=== PATIENT | male | born 1985 | race Caucasian/White ===

== ENCOUNTER 2017-01-22 05:50 | Inpatient (IN) ==
--- NOTE | 2017-01-13 14:05 | EKG Report ---
Stationary ECG Study [facility] Test Date: 01/13/2017 2:05:32 PM Pat Name: KARISSA NORMAN Department: Room: Gender: M Commercial Insulator: LILI [birth year]17 : 1985 Requested by: John Ferrari Order Number: [id number] Reading MD: CAITLIN RUSSELL Intervals [place] Rate: 81 P: 48 ID: [id number] QRS: 78 QRSD: 96 T: 53 QT: 348 QTc: 385 Interpretive Statements SINUS RHYTHM Electronically Signed On 01-14-17 12:17:48 CDT by CAITLIN RUSESLL [email or web address]
--- NOTE | 2017-01-13 14:16 | XRay Report ---
XR chest 2V Indication: Respiratory preoperative evaluation Comparison: None available Findings: The heart and mediastinum are normal in size and configuration. The pulmonary vascularity is normal in caliber. No lung infiltrates, effusions, pneumothorax or other abnormality is demonstrated. Impression: No acute cardiopulmonary disease. PROCEDURE INTERPRETED AT [facility] DEPARTMENT OF RADIOLOGY Final Report Signed by: Dr. Jos Ch
[2017-01-13 14:29] LABS: Basophils # 0.1 10*3/uL (0.0-0.2); Basophils % 0.7 % (0.0-0.8); Eosinophils # 0.1 10*3/uL (0.0-0.87); Eosinophils % 0.9 % (0.00-10.9); Hematocrit 43.9 VOL% (42.0-52.0); Hemoglobin 15.6 GM/DL (14.0-18.0); Immature Granulocytes % 0.4 %; Immature Granulocytes Absolute 0.03 #; Lymphocytes # 2.1 10*3/uL (1.4-4.0); Lymphocytes % 30.4 % (21.2-54.2); Mean Corpuscular HGB Conc 35.5 GM/DL (32-36); Mean Corpuscular Hemoglobin 32 PG (27-34); Mean Corpuscular Volume 89.2 FL (87-102); Mean Platelet Volume 9.3 FL (9.6-12.0); Monocytes # 0.6 10*3/uL (0.11-0.8); Monocytes % 8.1 % (1.7-12.7); Neutrophils # 4.1 10*3/uL (1.4-7.4); Neutrophils % 59.5 % (38.7-73.9); Platelet Count 212 T/CUMM (130-400); Red Blood Count 4.92 MC/CUMM (3.8-5.5); Red Cell Distribution Width 12.3 % (9.3-17.3)
[2017-01-13 15:05] LABS: Albumin 4.2 G/DL (3.4-5.0); Bilirubin,Total 1.4 MG/DL (0.2-1.0); Calcium 9.1 MG/DL (8.5-10.1); Osmolality,Calculated 274.7 MOS/KG (273-304); Potassium 3.8 MMOL/L (3.5-5.1); Total Protein 7.3 G/DL (6.4-8.3)
[2017-01-22] MEDS ORDERED: ALVIMOPAN 12 MG CAPSULE PO ONE (06:00)
[2017-01-22] MEDS ORDERED: cefOXitin 1,000 MG in SODIUM CHLORIDE 0.9% 100 ML IV ONE (06:00)
[2017-01-22] MEDS ORDERED: SODIUM CHLORIDE 0.9% 100 ML IV ONE (06:03)
[2017-01-22] MEDS ORDERED: ALVIMOPAN 12 MG CAPSULE ONE (06:03)
[2017-01-22] MEDS ORDERED: LIDOCAINE 1%/EPI INJ 20 ML VIAL ONE (06:23)
[2017-01-22] MEDS ORDERED: BUPIVACAINE 0.25% 50 ML VIAL ONE (06:24)
[2017-01-22] MEDS: LACTATED RINGERS 1,000 ML IV SCH ×4 (06:27→11:16)
[2017-01-22] MEDS ORDERED: TISSUE ADHESIVE 1 EACH APPLICATOR TOP ONE (11:56)
[2017-01-22] MEDS ORDERED: ONDANSETRON 4 MG/2 ML VIAL ONE ×2 (12:21→12:36)
[2017-01-22] MEDS ORDERED: MIDAZOLAM 2 MG/2 ML VIAL ONE (12:21)
[2017-01-22] MEDS ORDERED: KETAMINE 500 MG/10 ML VIAL ONE (12:21)
[2017-01-22] MEDS ORDERED: SEVOFLURANE 1 UNIT/15 MINUTE INH ONE (12:22)
[2017-01-22] MEDS ORDERED: ACETAMINOPHEN 1,000 MG/100 ML VIAL IV ONE (12:22)
--- NOTE | 2017-01-22 12:29 | Operative Note ---
Date of procedure: 01/22/17 Pre-op diagnosis: Sigmoid diverticulitis Post-op diagnosis: same Procedure: #1 robotic assisted sigmoid colectomy 2. Complete mobilization of splenic flexure Findings and technique: After informed consent was obtained patient was brought the operating room and placed in supine position. After successful induction with general anesthesia the patient's abdomen was prepped and draped in usual sterile fashion. Local anesthesia was infiltrated in the right lower quadrant were small incision was made in an open technique used to enter the peritoneal cavity under direct vision. White cannula was inserted and additional ports were then placed after the camera was inserted. Ports were placed to the right of the umbilicus in the right upper quadrant. The robot was then docked. The patient had been placed in Trendelenburg position with his left side up prior to docking. Exploration was carried out with the robot exposing the sigmoid colon which had adherence to the left flank at the proximal sigmoid colon where this appeared he had previous diverticulitis. The descending colon appeared normal in appearance and was not adherent to the lateral abdominal wall. Peritoneal reflection was incised mobilizing the descending colon medially. The splenic flexure was very difficult to mobilize as the colon went essentially behind the lower pole of the spleen had multiple adhesions between the colon and the capsule of the spleen and also the omentum and the omentum had adhesions to the spleen as well. All of this had to be tediously taken down robotically with an licensed occupational therapy assistant helping to expose this area. Mobilization of the splenic flexure took about an hour. Meticulous hemostasis was maintained and this was done very slow and with great care to avoid any capsular tears or bleeding from the spleen. The splenic flexure was completely mobilized and then dissection turned towards the pelvis. The area of inflammation was dissected free from the pelvic sidewall and the iliac vessels and the left ureter were identified and avoided. Dissection was carried down to the peritoneal reflection where the colon was mobilized completely to this level laterally and then dissected medially as well. A window was created through the mesocolon and the mesenteric vessels divided rather close to the colon with the vessel sealer and a endoscopic stapler fired across the rectosigmoid. Colon was mobilized up past the diseased portion of the proximal sigmoid colon which was marked with a marking pen. The robot was then undocked in the right lower quadrant incision enlarged and a Sabrina tissue protector placed in the wound to protect the subcutaneous tissue and skin from the colon. The colon was delivered out through this incision. The pinpoint camera was used to inspect the vascular supply and the point of planned transection proximal to the area of previous disease was well perfused. This was divided over a pursestring device and the specimen removed. Pathology on this appeared benign. The anvil was placed and the colon placed back in the peritoneal cavity. The anastomosis was then completed laparoscopically with a TA stapling device passed transanally and an EEA stapler 28 mm in diameter used to perform an anastomosis under no tension. The anastomosis appeared to be well perfused and was leak tested under water with no evidence of leak. This was inspected carefully and noted to be completely hemostatic and the staple lines then coated with Tisseel tissue sealant. 10 mm ELVIRA drain was placed in the pelvis and brought out through the 5 mm port site. Gas was evacuated from the abdomen after arthroscopic exploration revealed no twisting of the colon and no bleeding. The ports were removed and the right lower quadrant fascial defect was closed. I closed the fascia prior to going back laparoscopically with a running 0 PDS suture. The wounds were closed with a deep layer of 3-0 Vicryl subcutaneous suture and skin with a running 4-0 Vicryl subcuticular suture and tissue sealant. He appeared to tolerate the procedure well and had no apparent complications. Anesthesia: DANIELA, local Surgeon / Physician: John Ferrari III. Event Planning Manager: Franki Blas Estimated blood loss: other (50 mL) Specimens: other (Sigmoid colon) Condition: stable Disposition: PACU Results - Labs CBC & BMP: 01/13/17 14:15 01/13/17 14:15 Discharge Plan - Discharge Medications No Action Ciprofloxacin HCl [Ciprofloxacin Tab] 500 mg PO BID #20 tablet metroNIDAZOLE TAB [Flagyl Cap/Tab] 1 tablet PO Q4HR Dextroamphetamine/Amphetamine [Adderall 15 mg Tablet] 15 mg PO BID - Follow Up or Referral - Forms/Instructions
[2017-01-22] MEDS ORDERED: ONDANSETRON 4 MG/2 ML VIAL IV PRN ×2 (12:30→12:47)
[2017-01-22] MEDS ORDERED: MORPHINE PCA 30 MG/30 ML SYRINGE IV SCH (12:30)
[2017-01-22] MEDS ORDERED: HYDROmorphone 2 MG/1 ML VIAL ONE (12:36)
[2017-01-22] MEDS: HYDROmorphone 2 MG/1 ML VIAL IV PRN ×2 (12:40→13:10)
[2017-01-22] MEDS ORDERED: MORPHINE PCA 30 MG/30 ML SYRINGE IV ONE (12:53)
[2017-01-22 12:59] LABS: Hematocrit 42.1 VOL% (42.0-52.0); Hemoglobin 14.9 GM/DL (14.0-18.0)
[2017-01-22] MEDS: DEXTROSE 5% LACTATED RINGERS 1,000 ML IV SCH (15:13)
--- NOTE | 2017-01-22 16:30 | Operative Note ---
Date of procedure: 01/22/17 Pre-op diagnosis: Recurrent sigmoid diverticulitis Post-op diagnosis: same Procedure: This is a office clerk assistant note for robotic assisted laparoscopic sigmoid colectomy with splenic flexure mobilization for recurrent sigmoid diverticulitis. I was scrubbed at the bedside for the robotic assisted laparoscopic splenic flexure mobilization and sigmoid colectomy and served as the office clerk assistant for the transanal portion of the anastomosis. The splenic flexure was completely mobilized with no tension resultant on the anastomosis. The anastomosis appeared patent and well perfused. There was no leak on air leak test. Please see Dr. Ferrari III note for full details of the operation. Surgeon / Physician: Franki Blas Results - Labs CBC & BMP: 01/22/17 12:49 01/13/17 14:15 Discharge Plan - Discharge Medications No Action Ciprofloxacin HCl [Ciprofloxacin Tab] 500 mg PO BID #20 tablet metroNIDAZOLE TAB [Flagyl Cap/Tab] 1 tablet PO Q4HR Dextroamphetamine/Amphetamine [Adderall 15 mg Tablet] 15 mg PO BID - Follow Up or Referral - Forms/Instructions
[2017-01-22] MEDS ORDERED: MORPHINE 2 MG/1 ML SYRINGE IV ONE (17:21)
[2017-01-22] MEDS: HYDROmorphone PCA 30 MG/30 ML SYRINGE IV SCH (17:38)
[2017-01-22] MEDS: ALVIMOPAN 12 MG CAPSULE PO SCH (20:12)
[2017-01-22 21:36] LABS: Hematocrit 38.6 VOL% (42.0-52.0); Hemoglobin 13.8 GM/DL (14.0-18.0)
[2017-01-23] MEDS: DEXTROSE 5% LACTATED RINGERS 1,000 ML IV SCH ×3 (00:33→16:25)
[2017-01-23] MEDS: ENOXAPARIN 40 MG/0.4 ML SYRINGE SUBCUT SCH (05:45)
[2017-01-23 06:05] LABS: Basophils % 0.2 % (0.0-0.8); Eosinophils # 0.1 10*3/uL (0.0-0.87); Eosinophils % 0.6 % (0.00-10.9); Hematocrit 40.7 VOL% (42.0-52.0); Hematocrit 40.9 VOL% (42.0-52.0); Hemoglobin 14.3 GM/DL (14.0-18.0); Hemoglobin 14.4 GM/DL (14.0-18.0); Immature Granulocytes % 0.3 %; Immature Granulocytes Absolute 0.03 #; Lymphocytes # 2.7 10*3/uL (1.4-4.0); Mean Corpuscular Hemoglobin 32 PG (27-34); Mean Corpuscular Volume 91.1 FL (87-102); Mean Platelet Volume 9.7 FL (9.6-12.0); Monocytes % 9.2 % (1.7-12.7); Neutrophils % 64.7 % (38.7-73.9); Platelet Count 234 T/CUMM (130-400); Red Blood Count 4.49 MC/CUMM (3.8-5.5); Red Cell Distribution Width 12.5 % (9.3-17.3); White Blood Count 10.8 T/CUMM (4-12)
[2017-01-23 06:37] LABS: Osmolality,Calculated 273.5 MOS/KG (273-304); Potassium 3.4 MMOL/L (3.5-5.1)
[2017-01-23] MEDS: PANTOPRAZOLE 40 MG TABLET PO SCH (09:30)
[2017-01-23] MEDS: ALVIMOPAN 12 MG CAPSULE PO SCH ×2 (09:30→21:08)
--- NOTE | 2017-01-23 09:54 | Event Note ---
He is postoperative day #1 from a robotic left colectomy. He feels well but had some urinary retention symptoms during the night and we did do an in and out cath. It appears that he was retaining some urine. He is voiding but we need to check place void residual with the bladder scan. This should be transient and should resolve. He has good urine output otherwise in stable vital signs. We will ambulate him more today. I do not see any sign of any significant complication. He has serosanguineous drainage in his ELVIRA drain.
--- NOTE | 2017-01-23 14:21 | Pathology Report from [facility] ---
[facility] [place] ACCESSION # : [id number] PATIENT NAME : Nestor Norman ORDERING DR : BISI CHANEY III, MD CLINICAL HX: Diverticulitis POST-OP DX: Same SPECIMEN INFO: #1 Sigmoid colon #2 Additional proximal margin #3 Donuts GROSS DESCRIPTION: #1 Received fresh labeled with the patients name NESTOR NORMAN and consists of a colon segment measuring 16.0 x 2.5 cm. The serosa is smooth and pink-desouza. Opening the colon reveals a thickened bowel wall with scattered non bleeding diverticula seen. No mucosal lesions or perforations are appreciated. Sectioned and submitted: 1A and 1B surgical margins, 1C diverticulum.#2 Received in formalin labeled with the patients name NESTOR NORMAN and #2 consists of a ring-shaped fragment of mucosal tissue measuring 2.5 x 1.2 cm. Gas Examiner sections submitted in cassette #2.#3 Received in formalin labeled with the patients name NESTOR NORMAN and #3 consists of two ring-shaped fragments of red-desouza mucosal tissue measuring 3.5 x 1.8 cm in aggregate. Gas Examiner sections submitted in cassette #3. DIAGNOSIS FOR NESTOR NORMAN: #1 SIGMOID COLON, PARTIAL COLECTOMY: Diverticular disease with focal diverticulitis and a small pericolic abscess. Viable specimen margins.#2 COLON, ADDITIONAL PROXIMAL MARGIN: Unremarkable colon mucosa.#3 COLON DONUTS: Two portions of unremarkable colon mucosa. COLLECTED DATE: 01/22/2017 [facility] REPORT DATE: 01/23/2017 ELECTRONICALLY SIGNED BY: Timoteo Damon M.D. 01/23/2017 - 9:23:17 [facility]
[2017-01-23] MEDS ORDERED: ZALEPLON 5 MG CAPSULE PO PRN (15:19)
[2017-01-23] MEDS: POTASSIUM CHLORIDE 20 MEQ TABLET PO SCH (16:57)
[2017-01-23] MEDS: diphenhydrAMINE 50 MG/1 ML VIAL IV PRN (21:07)
[2017-01-24] MEDS: DEXTROSE 5% LACTATED RINGERS 1,000 ML IV SCH ×2 (00:17→06:15)
[2017-01-24] MEDS: HYDROmorphone PCA 30 MG/30 ML SYRINGE IV SCH (06:14)
[2017-01-24] MEDS: ENOXAPARIN 40 MG/0.4 ML SYRINGE SUBCUT SCH (06:15)
[2017-01-24] MEDS ORDERED: DEXTROSE 5% LACTATED RINGERS 1,000 ML IV SCH (07:00)
[2017-01-24] MEDS: diphenhydrAMINE 50 MG/1 ML VIAL IV PRN ×2 (07:31→16:46)
[2017-01-24] MEDS: ALVIMOPAN 12 MG CAPSULE PO SCH ×2 (08:54→20:39)
[2017-01-24] MEDS: POTASSIUM CHLORIDE 20 MEQ TABLET PO SCH (08:55)
[2017-01-24] MEDS: PANTOPRAZOLE 40 MG TABLET PO SCH (08:55)
[2017-01-24] MEDS ORDERED: MEPERIDINE 25 MG/1 ML VIAL IV PRN (10:01)
--- NOTE | 2017-01-24 10:26 | Event Note ---
Status post robotically assisted laparoscopic left colectomy. Had some postop urinary retention but states he has been urinating well. He has been tolerating liquids. He denies flatus or bowel movement. States he is overall improving. He has been afebrile and his vital signs are stable. On exam his abdomen is soft appropriately tender nondistended and the ELVIRA drain has some serosanguineous fluid. He has excellent bowel sounds present. Will advance to full liquids and see how he does. DC the DATA REVIEWER and INT his IV fluids. We will give him [place] p.o. and intermittent Demerol as needed for pain. He has been ambulating and I encouraged him to continue doing so.
[2017-01-25] MEDS: ENOXAPARIN 40 MG/0.4 ML SYRINGE SUBCUT SCH (06:11)
[2017-01-25] MEDS: POTASSIUM CHLORIDE 20 MEQ TABLET PO SCH (09:15)
[2017-01-25] MEDS: PANTOPRAZOLE 40 MG TABLET PO SCH (09:15)
[2017-01-25] MEDS: ALVIMOPAN 12 MG CAPSULE PO SCH (11:10)
[2017-01-25] MEDS ORDERED: diphenhydrAMINE CAP 25 MG CAPSULE PO PRN (11:12)
--- NOTE | 2017-01-25 11:17 | Event Note ---
Patient is doing very well. He is afebrile his vital signs are stable. He has been tolerating full liquid diet. He had a bowel movement and is having a lot of flatus. His ELVIRA drain has a moderate amount of serosanguineous normal- appearing fluid. His abdomen is soft appropriately tender nondistended and his pain has been very well controlled. He has good bowel sounds. His incisions look good. Will advance to a regular diet. Probably will be ready for discharge tomorrow.
[2017-01-26] MEDS: ENOXAPARIN 40 MG/0.4 ML SYRINGE SUBCUT SCH (06:16)
--- NOTE | 2017-01-26 07:23 | Event Note ---
He feels well. He is tolerating a diet and had a small bowel movement yesterday as well as flatus. He is not having nausea or vomiting. He is afebrile with normal vital signs. His abdomen is benign on examination and his incisions are unremarkable. There is a small amount of serosanguineous drainage in his ELVIRA drain. We will remove his drain today and discharge him home. I will see him back in the office in 1 week.
[2017-01-26] MEDS: POTASSIUM CHLORIDE 20 MEQ TABLET PO SCH (09:09)
[2017-01-26] MEDS: PANTOPRAZOLE 40 MG TABLET PO SCH (09:10)
--- NOTE | 2017-01-26 10:27 | Discharge Summary ---
Hospital Course - Hospital Course Hospital Course: 31-year-old white male with history of IBS and recurrent diverticulitis admitted by Dr. Vonda PURVIS on 01/22/2017 and taken to the OR for robotic assisted sigmoid colectomy with complete mobilization of the splenic flexure for recurrent sigmoid diverticulitis. Patient is done very well postoperatively. In the initial postop period he did have difficulty voiding but now he is voiding normally. He is tolerating a diet, abdominal pain controlled, he is ambulating the halls, and he has had a bowel movement. He will be discharged home with a 1-2 week follow-up with Dr. Vonda PURVIS. Patient can resume work if cleared after his appointment. Complete discharge instructions were given to the patient and his family in the room. Care coordination, chart review, and completed discharge paperwork took approximately 37 minutes. - Time spent with patient Time with patient DS: Greater than 30 minutes Specialty Discharge - Follow Up or Referrals Follow up with: John Ferrari III., MD [Physician] - 02/02/17 10:00 am Discharge Plan - Discharge Data Disposition: Disch To Home/Self Care Condition at Discharge: Stable Discharge Diet: advance to your usual diet Activity: no lifting Hygiene: may shower Driving: other (No driving if taking pain medications) Contact your physician if you experience:: fever over 101, Nausea/Vomiting Wound / Dressing Care Instructions: Okay to shower daily with mild soap and water, pat dry, leave open to the air. Drain incision cover with waterproof dressing for the next 2-3 days while showering. - Discharge Medications New HYDROcodone/ACETAMIN 7.5-325 [Mar Lin 7.5-325] 1 - 2 tablet PO Q4H PRN #30 tablet PRN Reason: Pain Moderate (4-7) Continue Dextroamphetamine/Amphetamine [Adderall 15 mg Tablet] 15 mg PO BID Discontinued Ciprofloxacin HCl [Ciprofloxacin Tab] 500 mg PO BID #20 tablet metroNIDAZOLE TAB [Flagyl Cap/Tab] 1 tablet PO Q4HR - Follow Up or Referral Follow Up: John Ferrari III., MD [Physician] - 02/02/17 10:00 am - Forms/Instructions Forms: Acute Care Work/School Release Exam - Constitutional Vitals: Period Temp Pulse Resp BP Sys/Mccarty Pulse Ox Last 24 Hr 97.1 F-98.4 F 57-63 18-20 111-137/63-73 95-100 Exam: 31-year-old white male, no acute distress, alert and oriented Chest clear CV regular rate and rhythm Abdomen soft, appropriately tender, incisions look good Extremities no edema DS: Provider Date of admission: 01/22/17 05:50 Primary care physician: Forest Montes MD Attending physician on admission: John Ferrari III., Discharging clinician: MATT Amaya Expected date of discharge: 01/26/17
[2017-01-26 11:05] VITALS: BP 119/61
== END 2017-01-26 12:00 | disposition home or self-care (01) | DRG 331 ==
LOC: N.OR 05:50 → N.SDSINP 05:50 → EDSTATUS 07:30 → N.3E 12:30
PROVIDERS: ADMIT Surgery; ATTEND Surgery